=== PATIENT | male | born 1990 | race Two or more races ===

== ENCOUNTER → 2025-07-12 | Emergency (ER) | payer MEDICAID, OTHER ==
[~2025-07-12] VITALS: Ht 165.1 cm; Wt 68.0 kg
[~2025-07-12] MED LIST: HYDR500C2 PO; HYDROMORPHONE INJ 2 MG/ML DISP.SYRIN ONE; KETOROLAC TROMETHAMINE 15 MG/ML VIAL ONE
[2025-07-12] MEDS: KETOROLAC TROMETHAMINE 15 MG/ML VIAL IV ONE ×2 (11:00→16:52)
[2025-07-12] MEDS: IV NS 0.9% 1,000 ML BAG IV ONE (11:00)
[2025-07-12 11:06] LABS: PLATELET COUNT (AUTO) 328 K/uL (150-450); RED BLOOD CELL COUNT(AUTO) 2.27 MIL/uL (4.5-6.0); RED CELL DISTRIBUTION WIDTH 26.7 % (11.5-15.0); WHITE BLOOD COUNT (AUTO) 13.8 K/uL (4.3-11.0)
[2025-07-12 11:14] LABS: CALCIUM, SERUM 8.8 mg/dL (8.5-10.1); CREATININE 0.9 mg/dL (0.6-1.3); SODIUM SERUM 144 mmol/L (136-145); UREA NITROGEN, BLOOD 11 mg/dL (7-18)
[2025-07-12] MEDS: HYDROMORPHONE INJ 2 MG/ML DISP.SYRIN IV ONE ×2 (12:21→16:53)
[2025-07-12 19:27] VITALS: BP 130/80; TEMP 98; O2SAT 95
== END | disposition home or self-care (01) ==
LOC: ER 09:40
DX: D57.219 Sickle-cell/Hb-C disease with crisis, unspecified (principal); E86.0 Dehydration; Z79.64 Long term (current) use of myelosuppressive agent
CPT/HCPCS: 99285; 96374; 96375; 71045; 96361; 93005; 96376; 85025; 80048; 85045; 36415; 84484 ×2; J1885 ×2; J1200 ×2; J1171 ×2; J7030